=== PATIENT | male | born 1965 | race Caucasian/White ===

== ENCOUNTER 2018-05-18 18:07 | Inpatient (IN) ==
[2018-05-18 20:02] LABS: Basophils % 0.6 %; Eosinophils % 0.1 %; Hematocrit 47.4 % (37.5-50.1); Hemoglobin 15.2 g/dL (12.9-16.9); Immature Granulocytes % 0.1 % (0-4); Lymphocytes # 0.7 K/mcL (0.6-4.6); Lymphocytes % 9.7 %; Mean Corpuscular HGB Conc 32.1 g/dL (31.6-35.5); Mean Corpuscular Volume 87.3 fL (83.0-100.0); Monocytes # 0.9 K/mcL (0.0-1.3); Monocytes % 12.9 %; Neutrophils # 5.4 K/mcL (1.6-8.9); Platelet Count 303 K/mcL (140-400); Red Blood Count 5.43 M/mcL (4.19-5.50); Red Cell Distribution Width 18.3 % (11.5-14.5); Segmented Neutrophils % 76.6 %
[2018-05-18] MEDS ORDERED: Furosemide 40 MG/4 ML VIAL IVP ONE (20:04)
[2018-05-18 20:25] LABS: Albumin 3.5 g/dL (3.5-5.7); Bilirubin,Direct 1.4 mg/dL (0.0-0.2); Bilirubin,Indirect 1.4 mg/dL (0.0-1.2); Bilirubin,Total 2.8 mg/dL (0.3-1.0); Total Protein 6.7 g/dL (6.4-8.9)
[2018-05-18 20:26] LABS: Albumin/Globulin Ratio 1.1 (1.1-2.2); Globulin 3.2 g/dL (2.4-3.5)
[2018-05-18 20:28] LABS: BUN/Creatinine Ratio 12 (6-26); Blood Urea Nitrogen 8 mg/dL (6-20); Calcium 8.9 mg/dL (8.6-10.3); Carbon Dioxide 29 mEq/L (23-29); Chloride 90 mEq/L (98-107); Glucose 108 mg/dL (70-105); Osmolality,Calculated 263 (280-300); Potassium 4.6 mEq/L (3.5-5.1); Sodium 127 mEq/L (136-145); eGFR For Non-African Americans > 60 (> 60)
[2018-05-18] MEDS ORDERED: Isovue-370 500 ML INFUS..BTL IV ONE ×2 (20:30→21:42)
[2018-05-18] MEDS ORDERED: Nitroglycerin 0.4 MG TAB.SUBL SL ONE (20:31)
--- NOTE | 2018-05-18 20:31 | Emergency Department Note ---
Disposition Clinical Impression: Acute exacerbation of CHF (congestive heart failure) Qualifiers: Heart failure type: unspecified Qualified Code(s): I50.9 - Heart failure, unspecified Disposition: Admitted As Inpatient Referrals: NONE,PCP [Primary Care Provider] - Forms: ED Satisfaction Letter General Adult HPI - General Chief complaint: ED Shortness of Breath/Dyspnea Stated complaint: "eval for CHF sent by after hrs [facility] Time Seen by Provider: 05/18/18 19:20 Source: patient Mode of arrival: ambulatory Limitations: no limitations Nursing Notes Reviewed: Yes Vital Signs Reviewed: Yes - History of Present Illness HPI Narrative: 52-year-old male with a history of borderline diabetes presents for evaluation for congestive heart failure. Patient states that he has had increasing dyspnea over the past 4 days. Notes a nonproductive cough. Denies fevers. Denies chest pain. Patient also notes a 20 pound weight gain over the past week and a half. Denies any urinary complaints or dysuria. Does report some lower leg edema over the past week. Patient denies history of congestive heart failure but was told to come to the ED for evaluation of CHF. Patient was [facility] at [facility] prior to arrival. Patient states that he is about to go on medication and leaving and 2:00 in the morning. Denies history of any heart attacks. Denies history of any high blood pressure. Pain Scale: 0 - Related Data Home Medications Medication Instructions Recorded Confirmed No Known Home Drugs 05/18/18 05/18/18 Allergies Allergy/AdvReac Type Severity Reaction Status Date / Time No Known Allergies Allergy Verified 05/18/18 20:43 All systems ED: reviewed and negative except as stated. Constitutional: Denies: fever Cardiovascular: Denies: chest pain Respiratory: Reports: cough, dyspnea. Denies: sputum production Gastrointestinal: Denies: abdominal pain, nausea, vomiting Past Medical History - Past Medical History Source: patient Physical Exam - General Limitations: no limitations General appearance: alert, in no apparent distress - Head Head exam: atraumatic, normal inspection - Eye Eye exam: Present: normal appearance - ENT ENT exam: normal exam, normal oropharynx, mucous membranes moist - Neck Neck exam: Present: normal inspection - Chest Chest inspection: Present: normal inspection, symmetric chest wall rise - Respiratory Respiratory exam: Present: other (Bibasally rails left worse than right.) - Cardiovascular Cardiovascular exam: Present: regular rate, normal rhythm - Abdominal Exam Abdominal exam: Present: soft, Non-Tender. Absent: guarding, rebound - Extremities Exam Extremities exam: Present: normal inspection, pedal edema (1-2+ bilateral) - Expanded Lower Extremity Exam Neurovascular/Tendon exam: Present: normal capillary refill - Back Exam Back exam: Present: normal inspection - Neurological Exam Neurological exam: Present: alert, oriented X3, CN II-XII intact - Skin Skin exam: Present: warm, dry, intact, normal color Course Course Narrative: Patient seen and examined. Patient does have concerning signs or symptoms of congestive heart failure. Initial chest x-ray shows cardiomegaly with cephalization. Patient also is tachycardic and hypertensive. Patient was given Lasix as well as nitroglycerin. Patient will also get a CT angios of the chest to ensure no pulmonary embolism. Patient is moderate risk. Vital Signs Temperature 98.8 F 05/18/18 18:56 Pulse Rate 109 05/18/18 18:56 Respiratory Rate 22 05/18/18 18:56 Blood Pressure 148/104 05/18/18 18:56 O2 Sat by Pulse Oximetry 96 05/18/18 18:56 Temperature 98.8 F 05/18/18 18:56 Pulse Rate 109 05/18/18 18:56 Respiratory Rate 22 05/18/18 18:56 Blood Pressure 148/104 05/18/18 18:56 O2 Sat by Pulse Oximetry 96 05/18/18 18:56 Oxygen Delivery Oxygen Delivery Room Air Medical Decision Making - [facility] Narrative Medical decision making narrative: Patient presented for concerns of congestive heart failure. On exam the patient is tachycardic and hypertensive. Patient chest x-ray shows cardiomegaly with vascular congestion. Patient had basic labs show negative troponin as well as elevated BNP. Patient was given Lasix as well as nitroglycerin. Given the patient's new onset congestive heart failure with his tachycardia and dyspnea with nonproductive cough the patient had a CT angiogram of the chest. - Lab Data Lab results reviewed: Yes I reviewed the patient's lab results. Result diagrams: 05/18/18 19:41 05/18/18 19:41 Lab Results 05/18/18 05/18/18 05/18/18 Range/Units 19:41 19:41 19:41 WBC 7.1 (4.3-11.1) K/mcL RBC 5.43 (4.19-5.50) M/mcL Hgb 15.2 (12.9-16.9) g/dL Hct 47.4 (37.5-50.1) % MCV 87.3 (83.0-100.0) fL MCH 28.0 (28.0-33.3) pg MCHC 32.1 (31.6-35.5) g/dL RDW 18.3 H (11.5-14.5) % Plt Count 303 (140-400) K/mcL MPV 9.0 L (9.4-12.4) fL Immature Gran % 0.1 (0-4) % Seg Neutrophils % 76.6 % Lymphocytes % 9.7 % Monocytes % 12.9 % Eosinophils % 0.1 % Basophils % 0.6 % Neutrophils # 5.4 (1.6-8.9) K/mcL Lymphocytes # 0.7 (0.6-4.6) K/mcL Monocytes # 0.9 (0.0-1.3) K/mcL Eosinophils # 0.0 (0.0-0.6) K/mcL Basophils # 0.0 (0.0-0.2) K/mcL Sodium 127 L (136-145) mEq/L Potassium 4.6 (3.5-5.1) mEq/L Chloride 90 L (98-107) mEq/L Carbon Dioxide 29 (23-29) mEq/L BUN 8 (6-20) mg/dL Creatinine 0.68 L (0.70-1.30) mg/dL Est GFR ( Amer) > 60 (> 60) Est GFR (Non-Af Amer) > 60 (> 60) BUN/Creatinine Ratio 12 (6-26) Glucose 108 H (70-105) mg/dL Calculated Osmolality 263 L (280-300) Lactic Acid 2.4 H (0.5-2.2) mmol/L Calcium 8.9 (8.6-10.3) mg/dL Total Bilirubin (0.3-1.0) mg/dL Direct Bilirubin (0.0-0.2) mg/dL Indirect Bilirubin (0.0-1.2) mg/dL AST (13-39) Units/L ALT (7-52) Units/L Alkaline Phosphatase (34-104) Units/L B-Natriuretic Peptide (Less than 100) pg/mL Serum Total Protein (6.4-8.9) g/dL Albumin (3.5-5.7) g/dL Globulin (2.4-3.5) g/dL Albumin/Globulin Ratio (1.1-2.2) 05/18/18 05/18/18 Range/Units 19:41 19:41 WBC (4.3-11.1) K/mcL RBC (4.19-5.50) M/mcL Hgb (12.9-16.9) g/dL Hct (37.5-50.1) % MCV (83.0-100.0) fL MCH (28.0-33.3) pg MCHC (31.6-35.5) g/dL RDW (11.5-14.5) % Plt Count (140-400) K/mcL MPV (9.4-12.4) fL Immature Gran % (0-4) % Seg Neutrophils % % Lymphocytes % % Monocytes % % Eosinophils % % Basophils % % Neutrophils # (1.6-8.9) K/mcL Lymphocytes # (0.6-4.6) K/mcL Monocytes # (0.0-1.3) K/mcL Eosinophils # (0.0-0.6) K/mcL Basophils # (0.0-0.2) K/mcL Sodium (136-145) mEq/L Potassium (3.5-5.1) mEq/L Chloride (98-107) mEq/L Carbon Dioxide (23-29) mEq/L BUN (6-20) mg/dL Creatinine (0.70-1.30) mg/dL Est GFR ( Amer) (> 60) Est GFR (Non-Af Amer) (> 60) BUN/Creatinine Ratio (6-26) Glucose (70-105) mg/dL Calculated Osmolality (280-300) Lactic Acid (0.5-2.2) mmol/L Calcium (8.6-10.3) mg/dL Total Bilirubin 2.8 H (0.3-1.0) mg/dL Direct Bilirubin 1.4 H (0.0-0.2) mg/dL Indirect Bilirubin 1.4 H (0.0-1.2) mg/dL AST 19 (13-39) Units/L ALT 14 (7-52) Units/L Alkaline Phosphatase 79 (34-104) Units/L B-Natriuretic Peptide 1003 H (Less than 100) pg/mL Serum Total Protein 6.7 (6.4-8.9) g/dL Albumin 3.5 (3.5-5.7) g/dL Globulin 3.2 (2.4-3.5) g/dL Albumin/Globulin Ratio 1.1 (1.1-2.2) - Radiology Data Radiology results reviewed: Yes I reviewed the patient's radiology results. Chest X-Ray 05/18/18 18:59 IMPRESSION: Cardiomegaly with vascular congestion. D/ / 05/18/2018 19:30:24 Hans Weber MD / Tamika Nguyen Interpreting Provider: Hans Weber MD - EKG Data EKG #1 EKG attestation: Yes I reviewed and interpreted this EKG. EKG shows normal: sinus rhythm Rate: normal Rhythm: NSR [place]/QRS: left axis deviation P waves: other (Biphasic P wave in V1) Q waves: v1 When compared to previous EKG there are: previous EKG unavailable Interpretation: no acute changes, nonspecific ST-T wave changes
[2018-05-18] MEDS ORDERED: Aspirin 325 MG TABLET PO ONE (20:32)
[2018-05-18 21:09] LABS: Troponin I 0.03 ng/mL (< 0.04)
--- NOTE | 2018-05-18 21:11 | Emergency Department Note ---
Disposition Clinical Impression: New onset of congestive heart failure, Elevated bilirubin Disposition: Admitted As Inpatient Condition: Good Referrals: NONE,PCP [Primary Care Provider] - Forms: ED Satisfaction Letter Time of Disposition: 23:20 General Adult HPI - General Chief complaint: ED Shortness of Breath/Dyspnea Stated complaint: "eval for CHF sent by after [facility] Time Seen by Provider: 05/18/18 19:20 Source: patient Mode of arrival: ambulatory Limitations: no limitations - History of Present Illness Pain Scale: 0 - Related Data Home Medications Medication Instructions Recorded Confirmed No Known Home Drugs 05/18/18 05/18/18 Allergies Allergy/AdvReac Type Severity Reaction Status Date / Time No Known Allergies Allergy Verified 05/18/18 20:43 Constitutional: Denies: fever Cardiovascular: Denies: chest pain Respiratory: Reports: cough, dyspnea. Denies: sputum production Gastrointestinal: Denies: abdominal pain, nausea, vomiting Physical Exam - General Limitations: no limitations General appearance: alert, in no apparent distress Course - Reevaluation(s) Reevaluation #1: patient has elevated bilirubin levels with normal LFTs and admit to drinking alcohol daily in varying amounts. Thsi could be a reason for his elevated bilirubins although he still has a galbladder. WE will obtain a lipase carmen ddition to ABCT of to rule out other sources for the elvated bilirubin. 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 He also has anasarca present on CTA. Time: 21:47 Reevaluation #2: updated patient and family and they are agreeable to plan Time: 23:20 - Consultations Consultation #1: discussed case with Dr Tucker and he accepts patinet for admission. Time: 23:20 Vital Signs Temperature 98.8 F 05/18/18 18:56 Pulse Rate 109 05/18/18 18:56 Respiratory Rate 22 05/18/18 18:56 Blood Pressure 148/104 05/18/18 18:56 O2 Sat by Pulse Oximetry 96 05/18/18 18:56 Temperature 98.8 F 05/18/18 19:58 Pulse Rate 104 05/18/18 21:37 Respiratory Rate 21 05/18/18 21:37 Blood Pressure 125/95 05/18/18 21:37 O2 Sat by Pulse Oximetry 95 05/18/18 21:37 Oxygen Delivery Oxygen Delivery Room Air Medical Decision Making - Lab Data Result diagrams: 05/18/18 19:41 05/18/18 19:41 Lab Results 05/18/18 05/18/18 05/18/18 Range/Units 19:41 19:41 19:41 WBC 7.1 (4.3-11.1) K/mcL RBC 5.43 (4.19-5.50) M/mcL Hgb 15.2 (12.9-16.9) g/dL Hct 47.4 (37.5-50.1) % MCV 87.3 (83.0-100.0) fL MCH 28.0 (28.0-33.3) pg MCHC 32.1 (31.6-35.5) g/dL RDW 18.3 H (11.5-14.5) % Plt Count 303 (140-400) K/mcL MPV 9.0 L (9.4-12.4) fL Immature Gran % 0.1 (0-4) % Seg Neutrophils % 76.6 % Lymphocytes % 9.7 % Monocytes % 12.9 % Eosinophils % 0.1 % Basophils % 0.6 % Neutrophils # 5.4 (1.6-8.9) K/mcL Lymphocytes # 0.7 (0.6-4.6) K/mcL Monocytes # 0.9 (0.0-1.3) K/mcL Eosinophils # 0.0 (0.0-0.6) K/mcL Basophils # 0.0 (0.0-0.2) K/mcL Sodium 127 L (136-145) mEq/L Potassium 4.6 (3.5-5.1) mEq/L Chloride 90 L (98-107) mEq/L Carbon Dioxide 29 (23-29) mEq/L BUN 8 (6-20) mg/dL Creatinine 0.68 L (0.70-1.30) mg/dL Est GFR ( Amer) > 60 (> 60) Est GFR (Non-Af Amer) > 60 (> 60) BUN/Creatinine Ratio 12 (6-26) Glucose 108 H (70-105) mg/dL Calculated Osmolality 263 L (280-300) Lactic Acid 2.4 H (0.5-2.2) mmol/L Calcium 8.9 (8.6-10.3) mg/dL Total Bilirubin (0.3-1.0) mg/dL Direct Bilirubin (0.0-0.2) mg/dL Indirect Bilirubin (0.0-1.2) mg/dL AST (13-39) Units/L ALT (7-52) Units/L Alkaline Phosphatase (34-104) Units/L Troponin I 0.03 (< 0.04) ng/mL B-Natriuretic Peptide (Less than 100) pg/mL Serum Total Protein (6.4-8.9) g/dL Albumin (3.5-5.7) g/dL Globulin (2.4-3.5) g/dL Albumin/Globulin Ratio (1.1-2.2) Lipase (11-82) Units/L 05/18/18 05/18/18 Range/Units 19:41 19:41 WBC (4.3-11.1) K/mcL RBC (4.19-5.50) M/mcL Hgb (12.9-16.9) g/dL Hct (37.5-50.1) % MCV (83.0-100.0) fL MCH (28.0-33.3) pg MCHC (31.6-35.5) g/dL RDW (11.5-14.5) % Plt Count (140-400) K/mcL MPV (9.4-12.4) fL Immature Gran % (0-4) % Seg Neutrophils % % Lymphocytes % % Monocytes % % Eosinophils % % Basophils % % Neutrophils # (1.6-8.9) K/mcL Lymphocytes # (0.6-4.6) K/mcL Monocytes # (0.0-1.3) K/mcL Eosinophils # (0.0-0.6) K/mcL Basophils # (0.0-0.2) K/mcL Sodium (136-145) mEq/L Potassium (3.5-5.1) mEq/L Chloride (98-107) mEq/L Carbon Dioxide (23-29) mEq/L BUN (6-20) mg/dL Creatinine (0.70-1.30) mg/dL Est GFR ( Amer) (> 60) Est GFR (Non-Af Amer) (> 60) BUN/Creatinine Ratio (6-26) Glucose (70-105) mg/dL Calculated Osmolality (280-300) Lactic Acid (0.5-2.2) mmol/L Calcium (8.6-10.3) mg/dL Total Bilirubin 2.8 H (0.3-1.0) mg/dL Direct Bilirubin 1.4 H (0.0-0.2) mg/dL Indirect Bilirubin 1.4 H (0.0-1.2) mg/dL AST 19 (13-39) Units/L ALT 14 (7-52) Units/L Alkaline Phosphatase 79 (34-104) Units/L Troponin I (< 0.04) ng/mL B-Natriuretic Peptide 1003 H (Less than 100) pg/mL Serum Total Protein 6.7 (6.4-8.9) g/dL Albumin 3.5 (3.5-5.7) g/dL Globulin 3.2 (2.4-3.5) g/dL Albumin/Globulin Ratio 1.1 (1.1-2.2) Lipase 9 L (11-82) Units/L Attestation Statement - Attestation Attestation: I examined this patient and my medical decision-making was reviewed with the Resident Physician. I agree with the documented findings, disposition and treatment plan as described except to the extent set forth below. 52 year old male presents to the ED with complaints of dyspnea and was seen at an urgent care in [place] and they were concnered about new onset CHF and has an BNP of 1003 and vasuclar congestion on CXR. We will obtain a CTA of the chest and then admit to medicine for new onset CHF. Clarissa has been traeted with chrissy and is currenlty on 2LNC
[2018-05-19] MEDS ORDERED: *HR* Promethazine 25 MG/ML VIAL IVP PRN (04:29)
[2018-05-19] MEDS ORDERED: *HR* LORazepam 2 MG/ML VIAL IVP PRN ×3 (04:29)
[2018-05-19] MEDS: Folic Acid 1 MG TABLET PO SCH (08:27)
[2018-05-19] MEDS: Furosemide 40 MG/4 ML VIAL IVP SCH (08:27)
[2018-05-19] MEDS ORDERED: Acetaminophen 325 MG TABLET PO PRN (10:40)
[2018-05-19] MEDS ORDERED: Naloxone 0.4 MG/ML INJ IVP PRN (10:40)
--- NOTE | 2018-05-19 11:13 | Internal Med History&Physical ---
Date of Encounter: 05/19/18 Time of Encounter: 09:00 Internal Medicine - H&P: HPI Chief complaint: Shortness of breath Admitted From: Home Plans for Post Hospital Care: Home History of present illness: Mr. Phelps is a 52 year old male presented to ER for progressive shortness of breath for about 1 week with leg swelling. Patient is generally in good health on no home medications. Patient said started from about 1 week ago he has shortness of breath and exertional intolerance. Symptoms getting worse gradually. Patient denies chest pain. Patient can lay flat during night. Patient has bilateral leg swelling. Patient has mild nonproductive cough. No fever. Denies chest pain, nausea, vomiting, or diaphoresis. In the emergency room, patient was found elevated BNP and chest x-ray shows pulmonary edema with vascular congestion. Patient was treated with IV Lasix and admitted as acute CHF. Patient feels much better after Lasix treatment. Past Med Surg Social Fam HX - Past Medical History Medical history: other Psychiatric history: no psych history - Social History Smoking Status: Never smoker Smokeless Tobacco Status: Yes Alcohol use: heavy, recent Drug use: none - Family History Mother Living Status: Still Living Father Living Status: Still Living Hx Family Cancer: Yes (Prostate ca) Internal Medicine - H&P: Meds No Known Home Drugs 05/18/18 [History] 3 Allergy/AdvReac Type Severity Reaction Status Date / Time No Known Allergies Allergy Verified 05/18/18 20:43 All Systems PM: A 10-system review of systems was performed and is negative for pertinent findings except as documented above in the HPI. - Constitutional Vitals: Temp Pulse Resp BP Pulse Ox 97.6 F 96 18 147/99 97 05/19/18 07:10 05/19/18 07:10 05/19/18 07:10 05/19/18 07:10 05/19/18 07:10 General appearance: Present: A&O X 3, answers questions appropriately Exam: Pt is AAO x 3, in NAD - Head Head exam: Present: atraumatic, normocephalic - Eye Eye exam: Present: PERRL, conjuntiva pink, sclera anicteric Pupils: Present: PERRL - Neck Neck exam general surgery: Present: supple, trachea midline. Absent: lymphadenopathy - Respiratory Respiratory exam: Present: CTAB, rales (Fine crackles on B/L lung base, Rt > Lt) . Absent: accessory muscle use, rhonchi, wheezes - Cardiovascular Cardiovascular exam: Present: RRR, +S1, +S2. Absent: diastolic murmur, gallop, rubs, systolic murmur - GI/Abdominal GI/Abdominal exam: Present: normal bowel sounds, soft, no peritoneal signs. Absent: distended, tenderness - Extremities Exam Extremities exam: Present: warm, radial pulses palpable and symmetrical. Absent : calf tenderness, cyanotic, pedal edema - Neurological Exam Neurological exam: Present: CN II-XII intact, oriented X3, no focal deficits. Absent: pronater drift, facial droop, speech deficit - Skin Skin exam: Present: dry, intact Internal Med - H&P Results - Labs CBC & Chem 7: 05/18/18 19:41 05/18/18 19:41 - Assessment and plan (1) Alcoholism Current Visit: Yes Status: Acute Assessment and plan: Patient has history of alcoholism. Place patient on CIWA protocol (2) DVT prophylaxis Current Visit: Yes Status: Acute Assessment and plan: Heparin SC (3) New onset of congestive heart failure Current Visit: Yes Status: Acute Assessment and plan: Etiology is undetermined. Patient has elevated BNP with chest x-ray shows pulmonary vascular congestion. Consider new CHF. - Place patient on continuous cardiac monitoring - Strict I/O - Fluid restriction diet - Echocardiogram - Lasix 20 IV daily - Consult cardiology for new onset CHF. - Time Spent With Patient Total time spent is greater than 50% in coordination of care (as documented) at patient's floor/unit and/or counseling patient: 30 minutes 25 - 35 minutes
--- NOTE | 2018-05-19 15:04 | Cardiology Consult Note ---
Date of Encounter: 05/19/18 Time of Encounter: 14:59 Assessment and Plan (1) New onset of congestive heart failure Current Visit: Yes Status: Acute ADHF,unclear EF yet, etiology pending - volume status: moderate overload - c/w lasix, goal I/O neg 1.5 L/d, till dry weight or Bun/Cr up-trends - pending Echo EF to decide on ischemia w/u and BB, ACEI - keep K>4, Mg>2 - Na 2g/d, fluid restriction 1.5L/d - strict I/O, daily standing weight - nocturnal pulse oximetry - outpatient PSG (2) Hyponatremia Current Visit: Yes Status: Acute hypervolemic hypoNa 2/2 CHF combined with EtOH -lasix (3) Alcoholism Current Visit: Yes Status: Acute watch withdrawal (4) Elevated blood pressure reading Current Visit: Yes Status: Acute essential HTN or EtOH related. managment per primary team Discussion w patient/family: The assessment and plan as outlined above was discussed with the patient and/or family members who expressed understanding and agreement. All questions were answered. Thank you for involving us in the care of your patient. Please call with any questions. History of Present Illness Consult date: 05/19/18 Requesting physician: Jerson Tucker Consult reason: CHF Chief complaint: SOB History of present illness: Mr. Phelps is a 52 year old male w/o sig medical history or medications. P/w progressive NUNEZ 2-3 wks, worsening 1 wk with B/L LE edema, wt gain 20 lbs, no PNd/orthopnea "Bad" URI 1 month ago. + chronic diarrhea. Good response to laix iv 40 x1 No cp, syncope, palpitations, claudication. No fever. ECG sinus tachy, PRWP, LAE Trop neg, BNP 1k, hypoNa 127 Nonsmoker, + EtOH 2-4 drinks/d, no FH of CHF, premature CAD or SCD Past Med Surg Social Fam HX - Past Medical History Medical history: other Psychiatric history: no psych history - Social History Smoking Status: Never smoker Smokeless Tobacco Status: Yes Alcohol use: heavy, recent Drug use: none - Family History Mother Living Status: Still Living Father Living Status: Still Living Hx Family Cancer: Yes (Prostate ca) Medications and Allergies No Known Home Drugs 05/18/18 [History] 3 Allergy/AdvReac Type Severity Reaction Status Date / Time No Known Allergies Allergy Verified 05/18/18 20:43 All Systems Review: The remainder of the systems were reviewed and are negative - Cardiovascular Cardiovascular: as per HPI - Respiratory Respiratory: dyspnea - Gastrointestinal Gastrointestinal: diarrhea - Hematological/Lymphatic Hematologic/Lymphatic: no easy bleeding Physical Examination Other: General: NAD, AAO, cogent HEENT: anicteric Neck: no JVD, no bruits Chest: CTA B/L, no W/R/C Heart: RR, tachy, S1/S2, no S3/S4, no M/G/R Abdominal: BS +, soft, ND, NT Peripheral Pulses: radial pulse 2+ B/L, DP 1+ B/L Skin/Extremities: no cyanosis, 2+ B/L LE edema to lower shins, chronic stasis change Neurological: grossly non-focal. Results 05/18/18 19:41 05/18/18 19:41 - Imaging and Cardiology Echo: pending Holter: other (tele reviewed) - EKG Interpretation EKG results cardiology: personally reviewed Consult Discharge Plan - Plan Referrals: NONE,PCP [Primary Care Provider] -
[2018-05-19] MEDS ORDERED: Perflutren Lipid Microsphere 1.3 ML in 0.9 % Sodium Chloride 8.7 ML IVP ONE (17:00)
[2018-05-19] MEDS ORDERED: Perflutren Lipid Microsphere 2 ML VIAL ONE (17:01)
[2018-05-19] MEDS: *HR* Heparin 5,000 UNIT/ML VIAL SQ SCH (17:22)
[2018-05-19] MEDS: Thiamine (B-1) 100 MG, Folic Acid 1 MG, MVI, adult with vitamin K 10 ML in 0.9 % Sodi... IVPB SCH (17:22)
[2018-05-20 05:05] LABS: Basophils % 0.7 %; Eosinophils # 0.1 K/mcL (0.0-0.6); Hematocrit 48.8 % (37.5-50.1); Hemoglobin 15.2 g/dL (12.9-16.9); Immature Granulocytes % 0.2 % (0-4); Lymphocytes % 15.9 %; Mean Corpuscular HGB Conc 31.1 g/dL (31.6-35.5); Mean Corpuscular Hemoglobin 27.3 pg (28.0-33.3); Mean Corpuscular Volume 87.8 fL (83.0-100.0); Mean Platelet Volume 8.8 fL (9.4-12.4); Monocytes # 0.8 K/mcL (0.0-1.3); Monocytes % 13.5 %; Neutrophils # 4.1 K/mcL (1.6-8.9); Platelet Count 273 K/mcL (140-400); Red Blood Count 5.56 M/mcL (4.19-5.50); Red Cell Distribution Width 18.6 % (11.5-14.5); Segmented Neutrophils % 68.7 %
[2018-05-20 05:30] LABS: Albumin 3.4 g/dL (3.5-5.7); Albumin/Globulin Ratio 1.1 (1.1-2.2); Bilirubin,Direct 0.6 mg/dL (0.0-0.2); Bilirubin,Indirect 0.8 mg/dL (0.0-1.2); Bilirubin,Total 1.4 mg/dL (0.3-1.0); Globulin 3.1 g/dL (2.4-3.5); Total Protein 6.5 g/dL (6.4-8.9)
[2018-05-20] MEDS: *HR* Heparin 5,000 UNIT/ML VIAL SQ SCH ×2 (05:50→17:12)
[2018-05-20 06:48] LABS: BUN/Creatinine Ratio 15 (6-26); Blood Urea Nitrogen 10 mg/dL (6-20); Calcium 8.7 mg/dL (8.6-10.3); Carbon Dioxide 35 mEq/L (23-29); Chloride 93 mEq/L (98-107); Cholesterol 93 mg/dL (< 200); Glucose 126 mg/dL (70-105); HDL Cholesterol 31 mg/dL (40-59); LDL Cholesterol,Calculated 53 mg/dL (0-99); Magnesium 1.9 mg/dL (1.6-2.6); Osmolality,Calculated 275 (280-300); Potassium 4.1 mEq/L (3.5-5.1); Sodium 132 mEq/L (136-145); Triglycerides 46 mg/dL (< 150); eGFR For Non-African Americans > 60 (> 60)
[2018-05-20] MEDS: Folic Acid 1 MG TABLET PO SCH (10:05)
[2018-05-20] MEDS: Furosemide 40 MG/4 ML VIAL IVP SCH (10:06)
--- NOTE | 2018-05-20 10:58 | Event Note ---
Date of Encounter: 05/20/18 Time of Encounter: 10:00 - Cardiology Event Note Patient seen and examined. Cardiology consulted for new onset of CHF. TTE resulted with LVEF 15-20%, global LV hypokinesis, RV mildly dilated and hypokinetic. With new cardiomyopathy, recommend LHC. Risks versus benefits of LHC explained to patient and family, states understanding and agreeable to proceed. Further recommendations pending LHC. Will start ASA 81mg. Will not start BB due to acute CHF, consider prior to discharge. Also will consider jr/ arb prior to discharge.
[2018-05-20] MEDS ORDERED: Nitroglycerin 1,000 MCG/10 ML VIAL IV ONE (12:08)
[2018-05-20] MEDS ORDERED: Heparin 1,000 UNITS/500 mL 500 ML ONE (12:08)
[2018-05-20] MEDS ORDERED: Verapamil 5 MG/2 ML VIAL ONE (12:08)
[2018-05-20] MEDS ORDERED: 0.9 % Sodium Chloride 1,000 ML ONE ×2 (12:08→12:36)
[2018-05-20] MEDS ORDERED: ISOVUE-370 200 ML INFUS..BTL IV ONE (12:08)
[2018-05-20] MEDS ORDERED: *HR* Heparin 10,000 UNIT/10 ML VIAL ONE (12:08)
[2018-05-20] MEDS ORDERED: *HR* Midazolam HCl 5 MG/5 ML VIAL IVP ONE (12:35)
[2018-05-20] MEDS ORDERED: *HR* FentaNYL (PF) 100 MCG/2 ML VIAL ONE (12:35)
--- NOTE | 2018-05-20 12:46 | Pre-Sedation Evaluation ---
Pre-sedation evaluation - Pre-sedation checklist Date of procedure: 05/20/18 Procedure: Heart Catheterization Recent Vitals: Last Vital Signs Temp 97.4 F L 05/20/18 11:20 Pulse 91 05/20/18 11:20 Resp 16 05/20/18 11:20 BP 131/87 05/20/18 11:20 Pulse Ox 94 05/20/18 11:20 H&P (including ROS) documented in medical record: Yes Previous reaction to sedatives/anesthetics: No Dietary Status: No solid food in preceding 4 hrs and no liquid in preceding 2 hrs Dentition: No loose teeth or bridges, full dentition ASA Classification *see protocol: CLASS II-Mild systemic disease Plan of Care: Pt appropriate candidate for procedure/moderate/conscious sedation , Risks/benefits of procedure/sedation discussed w/ patient/family Cardiac Registry (Cardio Only) - Functional Capacity Functional Capacity: >=4 METS with symptoms - Clincal Frailty Scale Clinical Frailty Scale: Managing Well
[2018-05-20] MEDS: Loratadine 10 MG TABLET PO SCH (13:39)
[2018-05-20] MEDS: Fluticasone Propionate Nasal 50 MCG/SPRAY BOTTLE NS SCH (13:43)
--- NOTE | 2018-05-20 14:53 | Internal Med Progress Note ---
Hospitalist Progress Note - Encounter Date of Encounter: 05/20/18 Time of Encounter: 09:00 - Subjective Interval History: Improved the shortness of breath after diuretics. C/o stuffed nose and seasonal allergy symptoms. Claritin and nose spray ordered. Pt has good urine output on lasix. - Exam Vitals: Temp Pulse Resp BP Pulse Ox 97.4 F L 99 16 134/83 94 05/20/18 11:20 05/20/18 14:10 05/20/18 11:20 05/20/18 14:10 05/20/18 11:20 Exam: Pt is AAO x 3, in NAD HEENT: NC/AT PERRL Neck: Supple, no JVD Lungs: CTA B/l Heart: S2S2, RRR Abd: Soft, NT Ext: Mild pedal edema Neuro: No focal deficit. - Assessment and Plan (1) Alcoholism Current Visit: Yes Status: Acute Assessment and Plan: Patient has history of alcoholism. Place patient on CIWA protocol. No signs of withdraw (2) DVT prophylaxis Current Visit: Yes Status: Acute Assessment and Plan: Heparin SC (3) New onset of congestive heart failure Current Visit: Yes Status: Acute Assessment and Plan: Etiology is undetermined. Patient has elevated BNP with chest x-ray shows pulmonary vascular congestion. Consider new CHF. - Place patient on continuous cardiac monitoring - Strict I/O - Fluid restriction diet - Echocardiogram shows LVEF 15-20%, consistent with new onset systolic CHF - Lasix 20 IV daily - Cardio consult appreciated. Plan for C to rule out ischemic cardiomyopathy (4) Elevated bilirubin Current Visit: Yes Status: Acute Assessment and Plan: Probably due to CHF caused liver congestion. Improved after diuretics (5) Hyponatremia Current Visit: Yes Status: Acute Assessment and Plan: Probably due to CHF. Improved after lasix - Time Spent with Patient Total time spent is greater than 50% in coordination of care (as documented) at patient's floor/unit and/or counseling patient: 30 minutes 25 - 35 minutes Plan of Care Discussed with: patient Internal Medicine: Result - Labs CBC & Chem 7: 05/20/18 04:51 05/20/18 06:05 Consult Discharge Plan - Plan Referrals: NONE,PCP [Primary Care Provider] -
[2018-05-20] MEDS: Thiamine (B-1) 100 MG, Folic Acid 1 MG, MVI, adult with vitamin K 10 ML in 0.9 % Sodi... IVPB SCH (17:46)
[2018-05-20 18:27] LABS: Adenovirus Not Detected (Not Detect); Bordetella Pertussis Not Detected (Not Detect); Chlamydophila pneumoniae Not Detected (Not Detect); Coronavirus 229E Not Detected (Not Detect); Coronavirus HKU1 Not Detected (Not Detect); Coronavirus NL63 Not Detected (Not Detect); Coronavirus OC43 Not Detected (Not Detect); Human Metapneumovirus Not Detected (Not Detect); Human Rhinovirus/Enterovirus Not Detected (Not Detect); Influenza A Subtype 2009 H1 Not Detected (Not Detect); Influenza A Untypeable Not Detected (Not Detect); Influenza B Not Detected (Not Detect); Mycoplasma pneumoniae Not Detected (Not Detect); Parainfluenza Virus 1 Not Detected (Not Detect); Parainfluenza Virus 2 Not Detected (Not Detect); Parainfluenza Virus 3 Not Detected (Not Detect); Parainfluenza Virus 4 Not Detected (Not Detect); Respiratory Syncytial Virus Not Detected (Not Detect)
[2018-05-21 05:21] LABS: Basophils % 0.7 %; Eosinophils # 0.1 K/mcL (0.0-0.6); Eosinophils % 1.5 %; Hematocrit 46.1 % (37.5-50.1); Hemoglobin 14.4 g/dL (12.9-16.9); Immature Granulocytes % 0.4 % (0-4); Lymphocytes # 0.8 K/mcL (0.6-4.6); Lymphocytes % 14.2 %; Mean Corpuscular HGB Conc 31.2 g/dL (31.6-35.5); Mean Corpuscular Hemoglobin 27.6 pg (28.0-33.3); Mean Corpuscular Volume 88.5 fL (83.0-100.0); Mean Platelet Volume 8.9 fL (9.4-12.4); Monocytes # 0.5 K/mcL (0.0-1.3); Monocytes % 9.6 %; Platelet Count 300 K/mcL (140-400); Red Blood Count 5.21 M/mcL (4.19-5.50); Red Cell Distribution Width 18.6 % (11.5-14.5); Segmented Neutrophils % 73.6 %
[2018-05-21] MEDS: *HR* Heparin 5,000 UNIT/ML VIAL SQ SCH (05:30)
[2018-05-21 07:30] VITALS: BP 139/81
[2018-05-21 07:34] LABS: BUN/Creatinine Ratio 19 (6-26); Blood Urea Nitrogen 12 mg/dL (6-20); Calcium 9.4 mg/dL (8.6-10.3); Carbon Dioxide 35 mEq/L (23-29); Chloride 98 mEq/L (98-107); Glucose 137 mg/dL (70-105); Osmolality,Calculated 286 (280-300); Sodium 137 mEq/L (136-145); eGFR For Non-African Americans > 60 (> 60)
[2018-05-21] MEDS ORDERED: Metoprolol XL (24 HR) Succ 25 MG TAB.ER.24H PO SCH (09:00)
--- NOTE | 2018-05-21 09:16 | Invasive Diagnostic Lab Proc ---
Name: Ulices Phelps Date of Study: 05/20/2018 Date: 1965 Ht: 66.1in Medical Record#: [id number] Age: 52 Wt: 253.53lb Gender: Male BSA: 2.22 Order #: [id number] BMI: 40.75 Physicians Procedure Physician: Marino Babin MD, [facility] Referring MD: Referring MD: Staff Name Position Time In Sites, Bhargavi RT (R) Monitor 12:39 PM Bhargavi Rojas RT (R) Scrub 12:39 PM Mustapha Silva RN Coal Mine Inspector 12:39 PM Indications Indication Unstable Angina Abnormal Test - ECHO Procedures Performed Procedure L HRT ARTERY/VENTRICLE ANGIO Pre-Procedure Checklist Informed consent is complete signed and on chart. H&P is on chart. ID band is on and ID verified with patient. Patient NPO for procedure The procedure was described for the patient and questions were answered. Blood Pressure: 145/111 ECG is on chart. Rhythm: Sinus Tachycardia Plan of Care Patient will tolerate the procedure without complications. Adequate level of comfort will be maintained. Hemodynamics will remain stable Patient will recover from procedure without complications. Respiratory function will be maintained. Cardiac rhythm will remain stable. Patient temperature will be maintained. Patient and/or family have verbalized understanding of the procedure. Patient Education Chief Complaint/Reason for Test: Cardiac Cath Developmental Category: Adult (18-64 years) Developmentally Appropriate for Age: Yes Learning Barriers: None Education Needs: Procedure Education Method: Verbal Information Taught: Cardiac Cath Educational Evaluation: Able to repeat information Intravenous Access Time IV Size Location DC'd Fluid/Drip Rate Units RN 18g 1 /" Patent On Arrival Lt Wrist 0.9NaCl 50 ml/hr Mustapha Silva RN Allergies No Known Allergies Vital Signs Time BP (mmHg) HR (bpm) O2 Sat. RR (bpm) LOC 12:38 PM 145 / 111 103 100 % 21 12:42 PM 151 / 99 103 75 % 24 12:47 PM 140 / 106 102 86 % 12 12:52 PM 137 / 107 94 93 % 13 12:57 PM 147 / 97 102 97 % 21 01:02 PM 140 / 96 101 91 % 15 01:07 PM 135 / 103 101 93 % 21 Procedural Medications Time Medication Dose Units Method Given By 12:40 PM Oxygen 2 L/min nasal cannula Mustapha Silva RN 12:40 PM Versed 2 mg Intravenous Mustapha Silva RN 12:40 PM Fentanyl 50 mcg Intravenous Musatpha Silva RN 12:47 PM Oxygen 6 L/min Oxy Mask Mustapha Silva RN 12:52 PM Lidocaine 2% 1 ml Subcutaneous Marino Babin MD, [facility] 01:04 PM Nitroglycerin 200 mcg Intravenous Marino Babin MD 01:17 PM Heparin 4000 units Nitroglycerin 200 mcg Verapamil 2.5 mg Intraarterial Marino Babin MD, [facility] ASA Classification: CLASS II- Mild systemic disease (i.e. well-controlled diabetes, hypertension, asthma, cigarette smoking) Parth Score Preprocedure Postprocedure Activity 2- Moves 4 extremities sustained head lift Activity 2- Moves 4 extremities sustained head lift Circulation 2- SBP +/= 20 points of pre-anesthetic level Circulation 2- SBP +/= 20 points of pre-anesthetic level Consciousness 2- Awake and alert oriented x 3 Consciousness 2- Awake and alert oriented x 3 O2 Saturation 2- Able to maintain O2 satruation of 92% on room air O2 Saturation 2- Able to maintain O2 satruation of 92% on room air Respiratory 2- Able to deep breathe and cough well Respiratory 2- Able to deep breathe and cough well Total Score 10 Total Score 10 Contrast Agent: Isovue Diagnostic Contrast: 30 ml Total Contrast: 30 ml Fluoro Dose: 3468 mGy Procedure Log Time Note Enter By 12:36 PM CathStat 12:36 PM Vitals capture started with the following parameters, Patient=Adult, Interval=5 min, Initial Xhlewdxo=103 mmHg, Deflation Rate=5 mmHg, Cuff placed on Right Arm 12:37 PM Recorded ECG: HV=046 Condition=Condition 1 12:38 PM JE=058 bpm, AWIT=416/111 mmhg, YlF2=478.0 %, Resp=21 B/min 12:39 PM Pt arrived to garage laborer 2 at 12:39 tsites 12:39 PM Bhargavi Molina RT (R) Position: Monitor Time in: 12:39 tsites 12:39 PM Bhargavi Rojas RT (R) Position: Scrub Time in: 12:39 tsites 12:39 PM Mustapha Silva RN Position: Coal Mine Inspector Time in: 12:39 tsites 12:39 PM Patient charges- Angio tray pack, Navilyst 3mm J, Pulse Oximetry and ACIST tubing and transducer tsites 12:39 PM Physician arrived 12:39 tsites 12:39 PM Meet and greet completed tsites 12:39 PM Sign in performed according to hospital policy. tsites 12:39 PM Procedure start 12:39 tsites 12:40 PM Hair removed from procedure site in holding area using clippers. Right wrist and right groin prepped with Chloraprep by Bhargavi Rojas), then patient was draped. Skin intact. tsites 12:40 PM Time: 12:40 Oxygen on at 2 L/min per nasal cannula by Mustapha Silva RN tsites 12:40 PM Time: 12:40 Versed 2 mg Intravenous Given by Mustapha Silva RN tsites 12:40 PM Time: 12:40 Fentanyl 50 mcg Intravenous Given by Mustapha Silva RN tsites 12:40 PM Clinical Presentation: Stable angina tsites 12:42 PM ED=748 bpm, HSMU=455/99 mmhg, SpO2=75.0 %, Resp=24 B/min 12:47 PM VU=435 bpm, NRXR=479/106 mmhg, SpO2=86.0 %, Resp=12 B/min 12:47 PM Time: 12:47 Oxygen on at 6 L/min per Oxy Mask by Mustapha Silva RN tsites 12:52 PM Time out performed according to hospital policy tsites 12:52 PM Time: 12:52 1 ml Lidocaine 2% to right radial Subcutaneous Given by Marino Babin MD, [facility] tsites 12:52 PM ultrasound utlized for access tsites 12:52 PM HR=94 bpm, YLCN=612/107 mmhg, SpO2=93 %, Resp=13 B/min 12:57 PM Access obtained by percutaneous puncture. 5Fr 10cm Terumo [place] sheath placed in artery. [id number] tsites 12:57 PM 0.035 260cm Navilyst 3mmJ wire [id number] tsites 12:57 PM SO=611 bpm, OWMM=959/97 mmhg, SpO2=97 %, Resp=21 B/min 12:58 PM Time: 12:57 Patient given 4,000 units Heparin, 200 mcg Nitroglycerin, and 2.5 mg Verapamil Intraarterial by Marino Babin MD, [facility]. This is given to reduce risk of vessel spasm and thrombosis. tsites 12:58 PM 5Fr TIG catheter inserted over the wire C tsites 12:59 PM 0.035 260cm Navilyst 3mmJ wire [id number] tsites 01:00 PM LCA angiography performed in multiple views. tsites 01:00 PM Recorded Pressure: Ao, DE=406, Condition=Condition 1 (Aorta) Ao 139/91/110 01:01 PM Lesion found in 1st Diagonal. Pre Stenosis: 30 Pre ERNESTO Flow: tsites 01:01 PM Recorded Pressure: Ao, LE=895, Condition=Condition 1 (Aorta) Ao 137/113/124 01:01 PM Coronary Dominance: right tsites 01:02 PM RCA angiography performed in multiple views. tsites 01:02 PM 5Fr Pigtail catheter inserted over the wire DNC tsites 01:02 PM VZ=218 bpm, PCBG=510/96 mmhg, SpO2=91.0 %, Resp=15 B/min 01:03 PM Catheter selectively placed in left ventricle tsites 01:03 PM Recorded Pressure: LV, LB=476, Condition=Condition 1 (Left Ventricle) LV 135/20/36 01:03 PM edp measured tsites 01:04 PM Recorded Pressure: LV, Ao, EQ=220, Condition=Condition 1 (Left Ventricle) LV 143/23/40, (Aorta) Ao 133/89/108 01:04 PM Time: 13:04 Nitroglycerin 200 mcg Intravenous Given by Marino Babin MD tsites 01:06 PM Mid/Distal Left Anterior Descending Coronary Artery and diagonal branches with 30% stenosis. If graft is supplying this area, 0 % stenosis tsites 01:06 PM Procedure completed at 13:06 05/20/2018 tsites 01:07 PM Sign out completed: Radiation Dose 373 mGy, 3468 cGy/cm2 Fluoro Time: 1.3 Isovue 370 - 200ml contrast 30 ml given by Marino Babin MD, [facility]. Complications: NoneCardiac Rehab Consult needed: NoConfirmed administered medications: Yes tsites 01:07 PM Isovue 370 - 200ml,1 Bottle(s) used. tsites 01:07 PM Arterial sheath pulled, Vasc Band closure device used and was Successful S/N. tsites 01:07 PM 12 ml air in Vasc Band. tsites 01:07 PM RH=629 bpm, DXUM=533/103 mmhg, SpO2=93.0 %, Resp=21 B/min 01:07 PM Estimated Blood Loss: minimal tsites 01:07 PM Post ECG Sinus Tachycardia tsites 01:07 PM Post Blood Pressure 135/103 tsites 01:08 PM 13:07 Post Pulses Rt Radial 1+ tsites 01:08 PM Information taught Cardiac Cath tsites 01:09 PM Education needs Procedure and Plan of Care tsites 01:09 PM Learning barriers :None tsites 01:09 PM Education Methods Verbal tsites 01:09 PM Education evaluation Able to repeat information tsites 01:12 PM Site status No bleeding/hematoma - Rt Groin as reported by Bhargavi Rojas RT (R) at 13:09 tsites 01:13 PM Report given to marry IGNACIO Pt taken to E Room #32. 13:12 tsites 01:13 PM Delay to floor No tsites 01:13 PM Patient out of room: 13:13 tsites 01:13 PM Family placed in consult room. tsites Complications Complication None Hemodynamics Pressures Site Systolic/A Wave Diastolic/V Wave Mean AO 139 91 110 AO 137 113 124 LV 135 20 36 LV 143 23 40 AO 133 89 108 Post Procedure Information Blood Pressure: 135/103 mmHg Rhythm: Sinus Tachycardia Post procedural instructions were given Closure Device Time Device Success/Fail 05/20/2018 1:15:00 PM Mechanical Compression Successful Site Checks Time Location Status Staff Sheath In? Note 01:09 PM Rt Groin No bleeding/hematoma Bhargavi Rojas RT (R) Pulses Time Site Pre-Procedure Post-Procedure Note Bilateral DP & PT 2+ Rt Radial Normal plethysmography's Test 1:07:00 PM Rt Radial 1+ Updated by Bhargavi Molina RT (R) on 05/21/2018 9:07:36 AM Bhargavi Molina RT electronically signed on 05/21/2018 9:08:01 AM with status of Final
[2018-05-21] MEDS: Furosemide 40 MG/4 ML VIAL IVP SCH (10:08)
[2018-05-21] MEDS: Folic Acid 1 MG TABLET PO SCH (10:09)
[2018-05-21] MEDS: Loratadine 10 MG TABLET PO SCH (10:10)
[2018-05-21] MEDS: Fluticasone Propionate Nasal 50 MCG/SPRAY BOTTLE NS SCH (10:12)
--- NOTE | 2018-05-21 11:01 | Cardiology Progress Note ---
Date of Encounter: 05/21/18 Time of Encounter: 10:00 Assessment and Plan (1) New onset of congestive heart failure Current Visit: Yes Status: Acute Per cardiology: -Admitted with acute CHF. -TTE with LVEF 15-20%, global hypokinesis, mildly dilated and hypikinetic RV. -S/p LHC yesterday with mild, non-obstructive CAD. Non-ischemic cardiomyopathy, possibly ETOH induced. -Currently per i/os, net negative 2500ml. However, weight has decreased 6kg since admission. Appears near euvolemic on exam, suspect i/os inaccurate. -On BB, jr inhibitor, lasix. -CHF education given to patient and at bedside, states understanding. -Educated when to call cardiology. -Will switch lasix to po. -Recommend outpatient sleep study. -Cardiology will sign off and will follow in outpatient setting. Follow up set. (2) Alcoholism Current Visit: Yes Status: Acute Per cardiology: -Admited to drinking 3-4 beers per day. -Recommend refraining from ETOH. Discussion w patient/family: The assessment and plan as outlined above was discussed with the patient and/or family members who expressed understanding and agreement. All questions were answered. Thank you for involving us in the care of your patient. Please call with any questions. Discussed and reviewed with . Subjective Principal diagnosis: CHF Interval history: Patient reports feeling much better. Denies shortness of breath. Reports edema much improved. Objective Vital Signs, Last 4 Hours Temp Pulse Resp BP Pulse Ox 05/21/18 07:27 98.2 F 84 15 139/81 93 General: Conversant, No Apparent Distress HEENT: Atraumatic, Normocephaly, Mucus Membranes Moist Neck: No JVD, Normal carotid pulses Cardiac: Reg Rate and Rhythm, Normal S1 and S2, No Murmur Lungs: Normal Breath Sounds, No Wheeze, Rales, Rhonchi Neuro: Alert and responsive, No focal deficits noted Abdomen: Soft, Non-Tender Skin: No rashes noted on visualized skin Musculoskeletal: No Chest Wall Tenderness Extremities: No Clubbing, No Cyanosis, No Edema, Normal Pulses Results 05/21/18 04:31 05/21/18 06:52 Lab Results Active Medications Acetaminophen (Tylenol) 650 mg PO Q6HR PRN PRN Reason: Mild Pain/Fever Stop: 11/18/18 10:41 Fluticasone Propionate (Flonase) 50 mcg NS DAILY [facility] PRN Reason: Protocol Stop: 11/19/18 12:46 Last Admin: 05/21/18 10:12 Dose: 50 mcg Folic Acid (Folic Acid) 1 mg PO DAILY [facility] Stop: 11/18/18 09:01 Last Admin: 05/21/18 10:09 Dose: 1 mg Furosemide (Lasix) 40 mg IVP DAILY [facility] Stop: 11/18/18 09:01 Last Admin: 05/21/18 10:08 Dose: 40 mg Heparin Sodium (Porcine) (Heparin) 5,000 unit SQ Q12HCO [facility] Stop: 11/18/18 18:01 Last Admin: 05/21/18 05:30 Dose: 5,000 unit Thiamine HCl 100 mg/ Folic Acid 1 mg/ Multivitamins 10 ml / Sodium Chloride 511.2 mls @ 85.2 mls/hr IVPB DAILY@1800 [facility] Stop: 05/21/18 23:59 Last Infusion: 05/21/18 07:35 Dose: Infused Lisinopril (Zestril) 5 mg PO DAILY [facility] PRN Reason: Protocol Stop: 11/20/18 09:01 Last Admin: 05/21/18 10:09 Dose: 5 mg Loratadine (Claritin) 10 mg PO DAILY [facility] PRN Reason: Protocol Stop: 11/19/18 12:46 Last Admin: 05/21/18 10:10 Dose: 10 mg Lorazepam (Ativan) 1 mg IVP Q1H PRN PRN Reason: Alcohol Withdrawal Stop: 11/18/18 04:30 Lorazepam (Ativan) 2 mg IVP Q4HR PRN PRN Reason: CIWA Score of 10-21 Stop: 11/18/18 04:30 Lorazepam (Ativan) 4 mg IVP Q4HR PRN PRN Reason: CIWA Score of 22-45 Stop: 11/18/18 04:30 Metoprolol Succinate (Toprol Xl) 12.5 mg PO DAILY [facility] Stop: 11/20/18 09:01 Last Admin: 05/21/18 10:09 Dose: 12.5 mg Naloxone HCl (Narcan) 0.4 mg IVP Q2MIN PRN PRN Reason: SEE COMMENTS Stop: 11/18/18 10:41 Promethazine HCl (Phenergan) 12.5 mg IVP Q4HR PRN PRN Reason: Nausea And Vomiting Stop: 11/18/18 04:30 Thiamine HCl (Vitamin B-1) 100 mg PO DAILY [facility] Stop: 11/21/18 09:01 Vitamin B Complex/Vit C/Vit E (Stresstab) 1 each PO DAILY [facility] Stop: 11/21/18 09:01 Laboratory Tests 05/21/18 05/21/18 04:31 06:52 Hgb 14.4 Potassium 4.0 Creatinine 0.64 L - Imaging and Cardiology Chest Xray: report reviewed Echo: report reviewed Cardiac cath: report reviewed - EKG Interpretation EKG results cardiology: other (Telemetry reviewed with average HR previous 12 hours noted to be 93, SR. Occasional PVCs and 2 couplet PVCs noted. PACs noted.) Consult Discharge Plan - Plan Referrals: NONE,PCP [Primary Care Provider] -
--- NOTE | 2018-05-21 13:14 | Discharge Summary ---
- NOTES TO OUTPATIENT PROVIDER Notes to Outpatient Provider: LVEF 15-20%, new med added, f/u with cardio Date of Encounter: 05/21/18 Time of Encounter: 12:00 - Discharge Diagnosis (1) Alcoholism Priority: Secondary Status: Acute Assessment and Plan: Patient has history of alcoholism. Place patient on CIWA protocol. No signs of withdraw (2) DVT prophylaxis Priority: Secondary Status: Acute (3) New onset of congestive heart failure Priority: Primary Status: Acute (4) Elevated bilirubin Priority: Secondary Status: Acute (5) Hyponatremia Priority: Secondary Status: Acute Hospital course: Mr. Phelps is a 52 year old male presented to ER for shortness of breath. Patient has chest x-ray shows pulmonary edema and vascular congestion. His BNP is elevated. Patient was diagnosed as new onset CHF. He was treated with IV Lasix. Echocardiogram shows LVEF 15-20%. Cardiology consult was called. Heart catheterization has been done, shows minimal stenosis. Consider nonischemic cardiomyopathy. After treatment, patient's condition has improved. He responded well to Lasix and loss 6kg BW after treatment. Cardiology saw patient again and recommended switched to by mouth Lasix. I saw and examined the patient today. Shortness of breath and leg swelling has significantly improved. Still occasionally need oxygen. Otherwise patient is stable. At rest, his oxygen saturation is 93-95% in room air. Will continue by mouth Lasix, metoprolol, and lisinopril. Patient will follow-up with PCP and cardiology as outpatient. Patient has some seasonal allergy symptoms, Claritin and nasal spray ordered as well. Had 6 minute walk oxygen qualification test, patient is qualified for home oxygen. Prescribed home oxygen. - Time Spent with Patient Total time spent providing and/or coordinating discharge services:28 min Less than 30 minutes - Discharge Medications Prescriptions: Fluticasone Propionate Nasal [Flonase] 50 mcg NS DAILY #1 bottle Furosemide [Lasix] 40 mg PO BIDDIURETIC #60 tablet Lisinopril [Zestril] 5 mg PO DAILY #30 tablet Loratadine [Claritin] 10 mg PO DAILY 10 Days #10 tablet Metoprolol XL (24 HR) Succ [Toprol Xl] 12.5 mg PO DAILY #30 tab.er.24h Home Medications: Fluticasone Propionate Nasal [Flonase] 50 mcg NS DAILY #1 bottle 05/21/18 [Rx] Furosemide [Lasix] 40 mg PO BIDDIURETIC #60 tablet 05/21/18 [Rx] Lisinopril [Zestril] 5 mg PO DAILY #30 tablet 05/21/18 [Rx] Loratadine [Claritin] 10 mg PO DAILY 10 Days #10 tablet 05/21/18 [Rx] Metoprolol XL (24 HR) Succ [Toprol Xl] 12.5 mg PO DAILY #30 tab.er.24h 05/21/18 [Rx] Allergies/Adverse Reactions: 3 Allergy/AdvReac Type Severity Reaction Status Date / Time No Known Allergies Allergy Verified 05/18/18 20:43 Date of admission: 05/20/18 12:31 Primary care physician: PCP NONE Discharging clinician: Ludmila Myers Anticipated date of discharge: 05/21/18 - Constitutional Vitals: Temp Pulse Resp BP Pulse Ox 98.2 F 84 15 139/81 93 05/21/18 07:27 05/21/18 07:27 05/21/18 07:27 05/21/18 07:27 05/21/18 07:27 General appearance: Present: A&O X 3, no acute distress, answers questions appropriately Exam: in NAD - Head Head exam: Present: atraumatic, normocephalic - Eye Eye exam: Present: PERRL, conjuntiva pink, sclera anicteric Pupils: Present: PERRL - Neck Neck exam general surgery: Present: supple, trachea midline. Absent: lymphadenopathy - Respiratory Respiratory exam: Present: CTAB. Absent: accessory muscle use, rales, rhonchi, wheezes - Cardiovascular Cardiovascular exam: Present: RRR, +S1, +S2. Absent: diastolic murmur, gallop, rubs, systolic murmur - GI/Abdominal GI/Abdominal exam: Present: normal bowel sounds, soft, no peritoneal signs. Absent: distended, tenderness - Extremities Exam Extremities exam: Present: pedal edema (mild b/l edema), warm, radial pulses palpable and symmetrical. Absent: calf tenderness, cyanotic - Neurological Exam Neurological exam: Present: CN II-XII intact, oriented X3, no focal deficits. Absent: pronater drift, facial droop, speech deficit - Skin Skin exam: Present: dry, intact - Patient Status Disposition: Home, Self-Care Condition: Good Functional capacity at discharge: independent ambulation Overall status at discharge: patient is progressing back to baseline - Discharge Instructions Follow Up With: NONE,PCP [Primary Care Provider] - 05/28/18 Additional Instructions: Pt need sleep study to r/o sleep apnea - Diet and Activity Activity: increase activity as tolerated, wear oxygen at night Diet: low fat, low cholesterol, low salt diet, other (Fluid restriction 1.5 L per day)
--- NOTE | 2018-05-21 15:54 | Electrocardiograph Report ---
[address] [place] [address] Test Date: 2018-05-18 Pat Name: Ulices Phelps Department: 104 Room: 2NE32 Gender: M Hot [employer] Observer: : 1965 Requested By: Jamil Sahni Order Number: [id number] Reading MD: Diane Chris Measurements Intervals Kelly Rate: 104 P: 42 [place]: 189 QRS: -15 QRSD: 95 T: 93 QT: 346 QTc: 407 Interpretive Statements SINUS TACHYCARDIA POSSIBLE LEFT ATRIAL ENLARGEMENT POSSIBLE ANTERIOR MYOCARDIAL INFARCTION, OF INDETERMINATE AGE Electronically Signed On 05-21-2018 15:53:11 EDT by Diane Chris
[2018-05-21] MEDS ORDERED: Furosemide 40 MG TABLET PO SCH (17:00)
[2018-05-22] MEDS ORDERED: Thiamine (B-1) 100 MG TABLET PO SCH (09:00)
[2018-05-22] MEDS ORDERED: Vitamin B Complex/Vit C/Vit E 1 EACH TABLET PO SCH (09:00)
[2018-05-22] MEDS ORDERED: Aspirin Enteric Coated 81 MG Tablet PO SCH (09:00)
== END 2018-05-21 16:30 | disposition home or self-care (01) | DRG 287 ==
LOC: EMEROOARM 18:07 → 2NENU 18:07
PROVIDERS: ADMIT Pediatrics; ATTEND Pediatrics